=== PATIENT | male | born 1980 | race Caucasian/White ===

== ENCOUNTER → 2017-06-01 | Outpatient (CLI) | payer MEDICAID ==
[~2017-06-01] MED LIST: CYSTO CONRAY II 250 ML VIAL UR ONE
== END | disposition home or self-care (01) ==
LOC: RAD 12:55
PROVIDERS: ATTEND Urology
DX: K51.813 Other ulcerative colitis with fistula (principal)
CPT/HCPCS: 74430; Q9958